=== PATIENT | male | born 1985 | race Caucasian/White ===

== ENCOUNTER 2019-02-05 19:51 | Emergency (ER) | payer SELFPAY ==
--- NOTE | 2019-02-05 20:39 | NUR ---
PATIENT LEFT WITHOUT BEING TRIAGED OR SEEN BY ERMD
[2019-02-06] MEDS ORDERED: ARIP10TA9 PO (13:36)
[2019-02-06] MEDS ORDERED: TRAZ-214 PO (13:36)
[2019-02-06] MEDS ORDERED: BUPR-96 PO (13:36)
== END 2019-02-05 20:40 | disposition left against medical advice (07) ==
LOC: ER 19:51
DX: Z53.21 Procedure and treatment not carried out due to patient leaving prior to being seen by health care provider (principal)

== ENCOUNTER 2019-02-06 13:21 | Emergency (ER) | payer OTHER ==
[~2019-02-06] VITALS: Ht 167.6 cm; Wt 77.1 kg
--- NOTE | 2019-02-06 13:33 | NUR ---
PT IS IN ROOM #1B. DR ANAND EVALUATED THE PT.
[2019-02-06] MEDS ORDERED: TRAZ-214 PO (13:36)
[2019-02-06] MEDS ORDERED: ARIP10TA9 PO (13:36)
[2019-02-06] MEDS ORDERED: BUPR-96 PO (13:36)
[2019-02-06 14:11] LABS: BASOPHILS % (AUTO) 0.7 % (0.0-2.0); EOSINOPHILS # (AUTO) 0.2 K/uL (0.0-0.7); EOSINOPHILS % (AUTO) 4.4 % (0.0-7.0); HEMATOCRIT 42.3 % (36.7-47.1); LYMPHOCYTES # (AUTO) 1.6 K/uL (20.0-40.0); LYMPHOCYTES % (AUTO) 28.7 % (20.5-51.5); MEAN CORPUSCULAR HEMOGLOBIN 31.1 uug (23.8-33.4); MEAN CORPUSCULAR HGB CONC 33 g/dL (32.5-36.3); MEAN CORPUSCULAR VOLUME 93.9 fL (73.0-96.2); MONOCYTES # (AUTO) 0.7 K/uL (2.0-10.0); MONOCYTES % (AUTO) 11.7 % (0.0-11.0); NEUTROPHILS # (AUTO) 3.1 K/uL (1.8-8.9); NEUTROPHILS % (AUTO) 54.5 % (38.5-71.5); PLATELET COUNT (AUTO) 293 K/uL (152-348); WHITE BLOOD COUNT (AUTO) 5.7 K/uL (3.6-10.2)
[2019-02-06 14:17] LABS: CARBON DIOXIDE 29 mmol/L (21-32); CHLORIDE 109 mmol/L (98-107); CREATININE 0.9 mg/dL (0.6-1.3); GLUCOSE 104 mg/dL (74-106); POTASSIUM 4.1 mmol/L (3.5-5.1); UREA NITROGEN, BLOOD 11 mg/dL (7-18)
[2019-02-06 14:23] LABS: ALANINE AMINOTRANSFERASE 24 U/L (16-63); ALKALINE PHOSPHATASE 53 U/L (50-136); ASPARTATE AMINOTRANSFERASE 17 U/L (15-37); BILIRUBIN,DIRECT 0.1 mg/dL (0.0-0.2); BILIRUBIN,TOTAL 0.1 mg/dL (0.2-1.0); TOTAL PROTEIN, SERUM 5.7 g/dL (6.4-8.2)
[2019-02-06 14:25] LABS: ETHANOL < 3 MG/DL (0-0)
[2019-02-06 14:27] LABS: ACETAMINOPHEN < 2.0 ug/mL (10-30)
[2019-02-06] MEDS: SULFAMETH/TRIMETH 800/160 MG TABLET PO ONE (15:18)
[2019-02-06] MEDS ORDERED: SULFAMETH/TRIMETH 800/160 MG TABLET ONE (15:34)
--- NOTE | 2019-02-06 15:43 | NUR ---
PT WAS D/C'd TO HOME. D/C INSTRUCTIONS GIVEN TO THE PT.
[2019-02-06 15:44] VITALS: BP 128/78
== END 2019-02-06 15:45 | disposition home or self-care (01) ==
LOC: ER 13:21
DX: F29 Unspecified psychosis not due to a substance or known physiological condition (principal); F17.200 Nicotine dependence, unspecified, uncomplicated; J45.909 Unspecified asthma, uncomplicated; F31.9 Bipolar disorder, unspecified; F20.9 Schizophrenia, unspecified; Z79.899 Other long term (current) drug therapy
CPT/HCPCS: 36415; 71045; 80048; 80076; 85025; 93005; 99284; G0480 ×2; G0481; A4663

== ENCOUNTER 2019-03-08 16:59 | Emergency (ER) | payer OTHER ==
[~2019-03-08] VITALS: Ht 172.7 cm; Wt 67.6 kg
[~2019-03-08 16:59] MED LIST: ARIP10TA9 PO; BUPR-96 PO; TRAZ-214 PO
--- NOTE | 2019-03-08 16:59 | NUR ---
PATIENT RECEIVED AMBULATORY. STATES HE IS HOMELESS. BUT SIGNED HOMELESS WAIVER FORM. Patient is AAOx4, speaking in complete sentences, speech is clear. Able to follow /comprehend directions. Gait is stable. No cardiovascular distress noted. Rate/rhythm regular. No CP. No respiratory distress noted. Respirations even , unlabored, symmetrical chest rise. No adventitious sounds noted. PATIENT'S REASON TO COME IN IS TO GET CHECKED FOR POSSIBLE INFECTION/EXPOSURE TO OTHER BODILY FLUIDS DUE TO SUPERFICIAL LACERATION ON RIGHT FOREARM OF UNKNOWN CAUSE. Denies si/hi at this time. Denies Fever/Chills. No recent travel. +hx of suicidal gestures in the past/NKDA. + ETOH / -recreational drug use/ 5CIGS PER DAY.
--- NOTE | 2019-03-08 17:55 | NUR ---
Patient discharged to home in stable conditon. Written and verbal after care instructions given. Patient verbalizes understanding of instructions.
[2019-03-08 18:06] VITALS: BP 127/78
[2019-03-10 12:07] LABS: HEPATITIS B SURFACE AB Reactive (.); HEPATITIS B SURFACE AG Negative (Negative)
== END 2019-03-08 18:07 | disposition home or self-care (01) ==
LOC: ER 17:01
DX: S51.811A Laceration without foreign body of right forearm, initial encounter (principal); F17.200 Nicotine dependence, unspecified, uncomplicated; J45.909 Unspecified asthma, uncomplicated; F31.9 Bipolar disorder, unspecified; F20.9 Schizophrenia, unspecified; F11.10 Opioid abuse, uncomplicated; F15.10 Other stimulant abuse, uncomplicated; Z77.21 Contact with and (suspected) exposure to potentially hazardous body fluids; Z79.899 Other long term (current) drug therapy; X58.XXXA Exposure to other specified factors, initial encounter; Y93.89 Activity, other specified; Y92.89 Other specified places as the place of occurrence of the external cause; Y99.8 Other external cause status
CPT/HCPCS: 36415; 86592; 86706; 86803; 87340; 87536; 87806; A4663

== ENCOUNTER 2019-03-09 11:12 | Emergency (ER) | payer OTHER ==
[~2019-03-09] VITALS: Ht 167.6 cm; Wt 68.9 kg
--- NOTE | 2019-03-09 11:48 | NUR ---
Patient is Aox4, no gun or weapons seen with patient. +Suicidal ideation by saying to our ER doctor that he will shoot himself, calm & cooperative@this time.
[2019-03-09 11:57] LABS: *BILIRUBIN,URIN NEGATIVE (NEGATIVE); *BLOOD, URINE NEGATIVE (NEGATIVE); *CLARITY,URINE CLEAR (CLEAR); *COLOR,URINE YELLOW (YELLOW); *KETONES,URINE NEGATIVE (NEGATIVE); LEUKOCYTE ESTERASE ,URINE NEGATIVE (NEGATIVE); NITRITE, URINE NEGATIVE (NEGATIVE); UGLUCOSE NEGATIVE (NEGATIVE)
[2019-03-09 11:58] LABS: BASOPHILS % (AUTO) 0.8 % (0.0-2.0); EOSINOPHILS # (AUTO) 0.4 K/uL (0.0-0.7); EOSINOPHILS % (AUTO) 6.7 % (0.0-7.0); HEMATOCRIT 41.1 % (36.7-47.1); HEMOGLOBIN 14.2 g/dL (12.5-16.3); LYMPHOCYTES % (AUTO) 37.2 % (20.5-51.5); MEAN CORPUSCULAR HEMOGLOBIN 31.7 uug (23.8-33.4); MEAN CORPUSCULAR HGB CONC 35 g/dL (32.5-36.3); MEAN CORPUSCULAR VOLUME 91.9 fL (73.0-96.2); MONOCYTES # (AUTO) 0.6 K/uL (2.0-10.0); MONOCYTES % (AUTO) 10.3 % (0.0-11.0); NEUTROPHILS # (AUTO) 2.4 K/uL (1.8-8.9); PLATELET COUNT (AUTO) 282 K/uL (152-348); RED BLOOD CELL COUNT(AUTO) 4.48 MIL/uL (4.06-5.63); WHITE BLOOD COUNT (AUTO) 5.3 K/uL (3.6-10.2)
[2019-03-09 12:04] LABS: CARBON DIOXIDE 29 mmol/L (21-32); CHLORIDE 107 mmol/L (98-107); CREATININE 0.8 mg/dL (0.6-1.3); GLUCOSE 78 mg/dL (74-106); POTASSIUM 3.8 mmol/L (3.5-5.1); UREA NITROGEN, BLOOD 19 mg/dL (7-18)
[2019-03-09 12:06] LABS: BACTERIA,URINE NONE SEEN /HPF (NONE SEEN); MUCUS,URINE MODERATE /LPF (0-FEW); RBC,URINE 0-3 /HPF (0-3); SQUAMOUS EPITHELIAL CELL,UR NONE SEEN /HPF (NONE SEEN); WBC,URINE 0-3 /HPF (0-3)
--- NOTE | 2019-03-09 12:06 | NUR ---
Meal tray provided to patient, as requested.
[2019-03-09 12:07] LABS: *AMPHETAMINE, URINE POSITIVE (NEGATIVE); *BARBITURATE, URINE NEGATIVE (NEGATIVE); *CANNABINOID, URINE NEGATIVE (NEGATIVE); *COCCAINE, URINE NEGATIVE (NEGATIVE); *OPIATE, URINE NEGATIVE (NEGATIVE); *PHENCYCLIDINE SCREEN,URINE NEGATIVE (NEGATIVE)
[2019-03-09 12:09] LABS: ALANINE AMINOTRANSFERASE 20 U/L (16-63); ALKALINE PHOSPHATASE 58 U/L (50-136); ASPARTATE AMINOTRANSFERASE 14 U/L (15-37); BILIRUBIN,DIRECT 0.1 mg/dL (0.0-0.2); BILIRUBIN,TOTAL 0.2 mg/dL (0.2-1.0); TOTAL PROTEIN, SERUM 6.4 g/dL (6.4-8.2)
[2019-03-09 12:10] LABS: ACETAMINOPHEN < 2.0 ug/mL (10-30)
--- NOTE | 2019-03-09 12:10 | NUR ---
Patient was medically cleared by Dr Rousseau for psych admission.
--- NOTE | 2019-03-09 12:11 | NUR ---
Call placed to [facility] for PET evaluation, ETA 90 min.
[2019-03-09 12:16] LABS: ETHANOL < 3 MG/DL (0-0)
--- NOTE | 2019-03-09 12:26 | NUR ---
Patient is resting comfortably on gurney with eyes closed. PATIENT IS PAIN FREE AT THIS TIME. NAD, pending psych evaluation@this time
--- NOTE | 2019-03-09 13:26 | NUR ---
Psych form worker Brittany James is here & evaluating the patient.
--- NOTE | 2019-03-09 14:24 | NUR ---
Call placed to [facility] ambulance, no available p/u until evening. Transportation not arranged.
--- NOTE | 2019-03-09 14:26 | NUR ---
Call placed to [facility], unable to obtain potential transfer information due to "high call volumes" per company, left message for return call.
--- NOTE | 2019-03-09 14:32 | NUR ---
Call placed to [facility], ETA 1600.
--- NOTE | 2019-03-09 14:50 | NUR ---
Call received from [facility], need authorization from their "[facility]" transportation. Call cancelled.
--- NOTE | 2019-03-09 14:54 | NUR ---
Patient Tranfers to outside Facility: [facility] Physician: Dr Michel Location: Unit 2 RN: Kenya samaniego hands off report@[phone] BLS ambulance PPP=[phone], trip#[id number]
--- NOTE | 2019-03-09 16:00 | NUR ---
Jcarlos is here. EMT Althea accepted hands off report. Patient left ER in stable condition.
[2019-03-09 16:02] VITALS: BP 114/75
== END 2019-03-09 16:05 | disposition short-term general hospital (02) ==
LOC: ER 11:12
DX: R45.851 Suicidal ideations (principal); F32.9 Major depressive disorder, single episode, unspecified; F15.10 Other stimulant abuse, uncomplicated; J45.909 Unspecified asthma, uncomplicated; F17.200 Nicotine dependence, unspecified, uncomplicated; F11.10 Opioid abuse, uncomplicated; F20.9 Schizophrenia, unspecified; Z79.899 Other long term (current) drug therapy; Z59.0 Homelessness
CPT/HCPCS: 36415; 80048; 80076; 80307; 81000; 81001; 85025; 99285; G0480 ×2; G0481; A4663

== ENCOUNTER 2019-04-20 16:18 | Emergency (ER) | payer SELFPAY ==
--- NOTE | 2019-04-20 16:30 | NUR ---
Attempted to triage, pt was not found in the ER waiting room. ER admitting stated that the pt left.
== END 2019-04-20 16:33 | disposition left against medical advice (07) ==
LOC: ER 16:23
DX: Z53.21 Procedure and treatment not carried out due to patient leaving prior to being seen by health care provider (principal)

== ENCOUNTER 2019-09-09 01:24 | Emergency (ER) | payer OTHER ==
[~2019-09-09] VITALS: Ht 172.7 cm; Wt 78.0 kg
[2019-09-09 02:13] LABS: BASOPHILS % (AUTO) 0.5 % (0.0-2.0); EOSINOPHILS # (AUTO) 0.2 K/uL (0.0-0.7); HEMATOCRIT 40.9 % (36.7-47.1); HEMOGLOBIN 14.1 g/dL (12.5-16.3); LYMPHOCYTES # (AUTO) 1.4 K/uL (20.0-40.0); LYMPHOCYTES % (AUTO) 18.3 % (20.5-51.5); MEAN CORPUSCULAR HEMOGLOBIN 31.9 uug (23.8-33.4); MEAN CORPUSCULAR HGB CONC 35 g/dL (32.5-36.3); MEAN CORPUSCULAR VOLUME 92.5 fL (73.0-96.2); MONOCYTES # (AUTO) 0.7 K/uL (2.0-10.0); MONOCYTES % (AUTO) 8.5 % (0.0-11.0); NEUTROPHILS # (AUTO) 5.5 K/uL (1.8-8.9); NEUTROPHILS % (AUTO) 69.7 % (38.5-71.5); PLATELET COUNT (AUTO) 317 K/uL (152-348); RED BLOOD CELL COUNT(AUTO) 4.42 MIL/uL (4.06-5.63); WHITE BLOOD COUNT (AUTO) 7.8 K/uL (3.6-10.2)
--- NOTE | 2019-09-09 02:14 | NUR ---
Radiology contacted to reach out to [facility] for RLE scan.
[2019-09-09 02:26] LABS: MAGNESIUM 2.2 mg/dL (1.8-2.4)
[2019-09-09 02:27] LABS: BILIRUBIN,DIRECT 0.3 mg/dL (0.0-0.2); BILIRUBIN,TOTAL 0.9 mg/dL (0.2-1.0); CREATININE 0.8 mg/dL (0.6-1.3); POTASSIUM 3.6 mmol/L (3.5-5.1)
[2019-09-09] MEDS ORDERED: IV NS 1000 ML 1,000 ML IV ONE (03:00)
--- NOTE | 2019-09-09 03:45 | NUR ---
Patient discharged to home in stable conditon. Written and verbal after care instructions given. Patient verbalizes understanding of instructions. IV removed. Catheter intact and site benign. Pressure and 4x4 gauze applied to site. No bleeding noted. Patient ambulated with stable gait. Mother here to take son home.
[2019-09-09 03:46] VITALS: BP 149/83
== END 2019-09-09 03:47 | disposition home or self-care (01) ==
LOC: ER 01:27
DX: J45.909 Unspecified asthma, uncomplicated (principal); F20.89 Other schizophrenia; F31.9 Bipolar disorder, unspecified; F10.10 Alcohol abuse, uncomplicated; F17.219 Nicotine dependence, cigarettes, with unspecified nicotine-induced disorders; L03.115 Cellulitis of right lower limb; M62.82 Rhabdomyolysis; Z60.2 Problems related to living alone; Z79.899 Other long term (current) drug therapy; Z76.0 Encounter for issue of repeat prescription
CPT/HCPCS: 36415; 73590; 83735; 85025; A4663; J7030